=== PATIENT | male | born 1970 | race African-American/Black ===

== ENCOUNTER 2019-07-05 11:55 | Emergency (ER) | payer OTHER, SELFPAY ==
[2019-07-05 11:59] VITALS: BP 127/81; PULSE 80; RESP 20; TEMP 36.7; O2SAT 98
--- NOTE | 2019-07-05 12:53 | ED.GENADULT ---
HPI - General Adult General Chief complaint: Skin/Abscess/Foreign Body Stated complaint: sore on nose Time Seen by Provider: 07/05/19 11:57 Source: patient Mode of arrival: ambulatory Limitations: no limitations History of Present Illness HPI narrative: Patient is a 48-year-old male who presents to emergency department for evaluation of wound to the right nare for the last several days noting moderate aching pain worse with touch patient notes some tenderness in the upper lip as well. Patient denies fever chills nausea vomiting. Patient denies similar occurrence. Patient not taken anything for her symptoms Related Data Allergies Allergy/AdvReac Type Severity Reaction Status Date / Time No Known Allergies Allergy Verified 07/05/19 12:02 Review of Systems Review of Systems: All systems reviewed & are unremarkable except as noted in HPI and below PMFSH Social History Social History Smoking status: Current every day smoker Exam Narrative: Exam Narrative: GENERAL: Well-appearing, well-nourished, and in no acute distress. HEAD: Normocephalic, atraumatic. EYES: PERRLA and EOMI. ENT: Nares clear, no rhinorrhea or epistaxis. Small abscess along the right inner nare with central opening draining purulent drainage with slight swelling of the surrounding tissues. mucous membranes moist. Oropharynx without tonsillar hypertrophy exudate or other lesions. EXTREMITIES: Normal range of motion. No edema. SKIN: Warm, dry, no rash. NEURO: No focal deficits. Alert and oriented x3. PSYCH: Normal mood and affect. Course Course Emergency Course: Patient in the room aware of case findings treatment plan and diagnosis agreeing to follow-up as directed and provided with reasons to return Vital Signs Vital signs: Vital Signs Temperature 98.1 F 07/05/19 11:59 Pulse Rate 80 07/05/19 11:59 Respiratory Rate 20 07/05/19 11:59 Blood Pressure 127/81 07/05/19 11:59 Pulse Oximetry 98 07/05/19 11:59 Temperature 98.1 F 07/05/19 11:59 Pulse Rate 80 07/05/19 11:59 Respiratory Rate 20 07/05/19 11:59 Blood Pressure 127/81 07/05/19 11:59 Pulse Oximetry 98 07/05/19 11:59 Medical Decision Making MDM Narrative Medical decision making narrative: Patient aware of case findings treatment plan and diagnosis agreeing to follow-up as directed or to return if symptoms worsen or concerns. Wound cultures were obtained. Patient will be started on oral antibiotics and given mupirocin and Hibiclens Vital Signs Vital Signs: Vital Signs Temperature 98.1 F 07/05/19 11:59 Pulse Rate 80 07/05/19 11:59 Respiratory Rate 20 07/05/19 11:59 Blood Pressure 127/81 07/05/19 11:59 Pulse Oximetry 98 07/05/19 11:59 Temperature 98.1 F 07/05/19 11:59 Pulse Rate 80 07/05/19 11:59 Respiratory Rate 20 07/05/19 11:59 Blood Pressure 127/81 07/05/19 11:59 Pulse Oximetry 98 07/05/19 11:59 Discharge Plan Discharge Clinical Impression: Abscess of skin or subcutaneous tissue Patient Disposition: Home, Self-Care Condition: Stable Instructions: Antibiotic Form Additional Instructions: Follow up with primary care in the next 7-14 days for re-evaluation return if symptoms worsen or concerns, any increase in redness swelling pain or fever over 100.5 Clean wound with mild soapy water. Apply antibiotic ointment and clean dressing at least three times daily Warm compresses 6 times a day for 15 minutes each Prescriptions: New doxycycline hyclate 100 mg capsule 100 mg PO Q12H 14 Days Qty: 28 RF: 0 mupirocin 2 % ointment 1 applic TOPICAL TID Qty: 22 RF: 0 chlorhexidine gluconate [Hibiclens] 4 % liquid 1 applic TOPICAL ONCE Qty: [id number] RF: 0 Follow-up/Referrals: PHYSICIAN,[employer] [Primary Care Provider] - Cralo Goins MD [Physician] - Yong Cardenas MD [Physician] - Stand Alone Forms: Work/School Release IP
[2019-07-05] MEDS: ACETAMINOPHEN 325 MG TABLET 650 MG PO (13:28)
== END 2019-07-05 13:30 | disposition home or self-care (01) ==
PROVIDERS: Emergency Provider Emergency Medicine
DX: J34.0 Abscess, furuncle and carbuncle of nose (principal)
CPT/HCPCS: 87070; 87075; 87147; 87186; 87205; 99283; A9270